=== PATIENT | female | born 1985 | race Caucasian/White ===

== ENCOUNTER 2023-12-29 12:06 | Emergency (ER) | payer OTHER, SELFPAY ==
[2023-12-29 12:08] VITALS: BP 129/79
[2023-12-29 13:24] LABS: % Basophils 0.5 % (0-2); % Eosinophils 1.6 % (0-6); % Immature Granulocytes 0.2 % (0-0.5); % Lymphocytes 28.6 % (20.5-51.1); % Monocytes 10.4 % (1.7-9.3); % Neutrophils 58.7 % (42.2-75.2); Absolute Eosinophils 0.1 10^3/uL (0-0.7); Absolute Lymphocytes 1.3 10^3/uL (1.2-3.4); Absolute Monocytes 0.5 10^3/uL (0.1-0.6); Absolute Neutrophils 2.6 10^3/uL (1.4-6.5); Hematocrit 37.3 % (37.0-47.0); Hemoglobin 12.4 g/dL (12.0-16.0); Mean Corp Hgb Conc. 33.2 g/dL (33.0-37.0); Mean Corpuscular Hgb 27.7 pg (27.0-31.0); Mean Corpuscular Volume 83.3 fL (81.0-99.0); Mean Platelet Volume 9.7 fL (7.4-10.4); Nucleated Red Blood Cells % 0 %; Platelet Count 271 10^3/uL (130-400); Red Blood Cell Count 4.48 10^6/uL (4.20-5.40); Red Cell Dist. Width 13.8 % (11.5-14.5); White Blood Cell Count 4.4 10^3/uL (4.8-10.8)
[2023-12-29 13:42] LABS: ALT (SGPT) 24 U/L (0-35); AST (SGOT) 23 U/L (14-36); Albumin 4.5 g/dl (3.5-5.0); Alkaline Phosphatase 54 U/L (38-126); Blood Urea Nitrogen 18 mg/dl (7-17); Calcium 9.5 mg/dl (8.4-10.2); Carbon Dioxide 28 mmol/L (22-30); Chloride 104 mmol/L (98-107); Glucose 93 mg/dl (70-99); Potassium 5.2 mmol/L (3.5-5.1); Sodium 141 mmol/L (135-145); Total Bilirubin 0.8 mg/dl (0.2-1.3); Total Protein 7.2 g/dl (6.3-8.2); eGFR > 60.00
[2023-12-29 13:45] LABS: Troponin I < 0.012 ng/ml
[2023-12-29 14:06] VITALS: BP 118/79
--- NOTE | 2023-12-29 14:16 | ED.GENMED ---
History of Present Illness
General
Chief Complaint: Chest Pain
Source: patient and spouse
Exam Limitations: none
Time Seen by Provider: 12/29/23 14:11
Nursing documentation reviewed up to this point in time: agreed with
History of Present Illness
History of Present Illness:
38-year-old female presents emergency department complaining of chest pain, jaw pain and fatigue since yesterday. Her chest tightness has dissipated, though she feels some in the back. Her jaw pain and headache have also dissipated.
Past History
Past History
ED Past Medical History: GERD
ED Past Surgical History: Tonsilectomy
Social History
Tobacco: Non-smoker
Alcohol: None
Personal:
Review of Systems
Review of Systems
Allergies reviewed?: Yes
All Other Systems: Not applicable
Constitutional: Reports no symptoms
EENT: Reports no symptoms
Respiratory: Reports trouble breathing
Cardiac: Reports chest pain
ABD/GI: Reports no symptoms
: Reports no symptoms
Musculoskeletal: Reports no symptoms
Skin: Reports no symptoms
Neurological: Reports no symptoms
Endocrine: Reports no symptoms
Hematologic/Lymphatic: Reports no symptoms
Psychiatric: Reports no symptoms
Phy Exam
Physical Exam
Physical Exam:
Physical Exam
General: no apparent distress, not acutely ill
Neck: supple. no meningeal signs. normal posterior pharynx
Heart: s1/s2 regular rate and rhythm, no murmur. equal radial
pulses.
HEENT: Pupils equal round reactive to light, EOMI
Lungs: no acute respiratory distress. clear bilaterally
Abdomen: normal bowel sounds. not tender. no CVAT
Neuro: alert and oriented. no focal neurological deficits cranial nerves II through XII intact
Skin: no rash
Psychiatric: well kept. interactive and cooperative
Extremities: no edema. no calf tenderness. negative homans. good distal pulses
Scores
Heart Score for Chest Pain Patients
STEMI patient?: No
History: Slightly or Non-Suspicious
ECG: Normal
Age: </= 45 years
Risk Factors: No Risk Factors
Troponin: </= Normal Limit
Heart Score for Chest Pain Patients: 0
Heart Score Risk: 2.5% MACE over next 6 weeks
Course
Orders/Labs/Results
Orders:
Orders
12/29/23 12:06
Electrocardiogram (*1) Urgent
Reason for Study: Chest Pain
12/29/23 12:07
EKG- Treatment ONCE
12/29/23 13:14
CR Chest - 2 Views Urgent
Comment:
Reason For Exam: chest pain
12/29/23 13:16
Complete Blood Count/With Diff Urgent
Comprehensive Metabolic Panel Urgent
Troponin I Urgent
12/29/23 14:44
COVID-19 Antigen Urgent
Source: Nasal Swab
12/29/23 15:17
DDimer [D-Dimer] Urgent
Abnormal Lab Results
12/29/23
13:16
WBC 4.4 L 10^3/uL
(4.8-10.8)
Monocytes % 10.4 H %
(1.7-9.3)
Potassium 5.2 H mmol/L
(3.5-5.1)
BUN 18 H mg/dl
(7-17)
12/29/23 13:16
12/29/23 13:16
Vital Signs
Initial and Last Documented VS:
Initial Vital Signs
Temp Pulse Resp BP Pulse Ox
97.9 F 89 20 129/79 99
12/29/23 12:08 12/29/23 12:08 12/29/23 12:08 12/29/23 12:08 12/29/23 12:08
Last Documented Vital Signs
Temp Pulse Resp BP Pulse Ox
97.9 F 69 19 118/79 98
12/29/23 12:08 12/29/23 14:15 12/29/23 14:15 12/29/23 14:06 12/29/23 14:51
MDM/Problems Addressed
Differential Diagnosis Includes:
Pulmonary embolism, ACS, reflux
MDM/Problems Addressed:
38-year-old female with chest pain, unclear etiology. D-dimer, troponin, chest x-ray and COVID normal. Patient stable for discharge. Do not suspect ACS or PE. Follow-up with primary care. Return precautions given.
*Radiology
Radiology exam reviewed: radiology read reviewed (Chest x-ray no acute findings)
*Pulse Oximetry
Patient hypoxic: no
*EKG
Interpreted by ED Provider?: Yes
EKG Intrepretation Date: 12/29/23
EKG Intrepretation Time: 12:18
Interpretation: normal
Comparison EKG: no changes
Heart Rate: 79
Rate: normal
Rhythm: sinus
Archer: normal axis
Interval: normal interval
QRS Pattern: normal QRS
Ischemia: no ischemia
*Order Control Clerk Blood Bank Interpretation
Rate: normal
Interpretation: normal
Heart Rate: 70
Rhythm: sinus
*Critical Care Note
Total Time (30-74mins, 75-104mins- exclusive of procedures): Not Applicable
Patient Management
Social determinants of health affecting care: Living situation
Escalation/DeEscalation of care consider admission/obs:
Admit not indicated
ED Attending Note
-
Portions of this chart may have been created with voice recognition software.� Occasional wrong word or��sound alike� substitutions may have occurred due to the inherent limitations of voice recognition software.
Discharge Plan
Departure
Patient Disposition: Home (Routine Discharge)
Date of Disposition: 12/29/23
Time of Disposition: 16:00
Patient with high blood pressure during this ER visit?: No
Condition: Good
Discharge Problem:
Chest pain
Instructions: Chest Pain PCP Follow Up
Referrals:
Ludwin Maxwell, DO [Family Provider] -
Interventions
Interventions:
*Risk Screen - Suicide Last Done: 12/29/23 14:51
*General Assessment Last Done: 12/29/23 12:08
*Neglect/Abuse Screening Last Done: 12/29/23 14:51
ED- Fall Risk Assessment Last Done: 12/29/23 14:51
*ED COVID-19 Vaccine History Last Done: 12/29/23 14:51
ED- Cardiac Assessment Last Done: 12/29/23 14:51
Discharge Date and Time
Print Language: FRENCH
[2023-12-29 14:51] VITALS: BMI 29.8
[2023-12-29 15:00] VITALS: BP 118/91
[2023-12-29 15:05] LABS: COVID-19 Antigen Negative (Negative)
[2023-12-29 15:40] LABS: D-Dimer < 0.27 ug/mlFEU (0.00-0.50)
[2023-12-29 16:00] VITALS: BP 93/63
== END 2023-12-29 16:41 | disposition home or self-care (01) ==
LOC: EMR 12:06
PROVIDERS: Emergency Medicine; EMERGENCY PHYSICIAN Emergency Medicine; FAMILY PHYSICIAN Family Medicine
DX: R07.89 Other chest pain (principal); K21.9 Gastro-esophageal reflux disease without esophagitis
CPT/HCPCS: 99285; 71046; 80053; 84484; 85025; 85379; 87811; 93005

== ENCOUNTER 2024-10-19 09:50 | Emergency (ER) | payer OTHER, SELFPAY ==
[2024-10-19 09:51] VITALS: BP 134/89
[2024-10-19] MEDS: DECADRON 10 MG IV (11:10)
[2024-10-19] MEDS: PEPCID 20 MG IV (11:10)
[2024-10-19] MEDS: TORADOL 15 MG IV (11:10)
[2024-10-19 11:12] LABS: Hematocrit 38.2 % (37.0-47.0); Hemoglobin 13.1 g/dL (12.0-16.0); Mean Corp Hgb Conc. 34.3 g/dL (33.0-37.0); Mean Corpuscular Volume 82.5 fL (81.0-99.0); Nucleated Red Blood Cells % 0 %; Platelet Count 205 10^3/uL (130-400); Red Cell Dist. Width 13.3 % (11.5-14.5)
[2024-10-19 11:25] VITALS: BP 116/84
--- NOTE | 2024-10-19 11:27 | EDRN ---
Lab called and SST hemolyzed. Pt has hand IV as difficulty to find a vein. CT called and said cannot inject into hand. IV team TT'd and will be down. Will attempt to redraw SST tube .
[2024-10-19 11:38] VITALS: BMI 31.2
[2024-10-19 11:53] LABS: COVID-19 Antigen Negative (Negative)
--- NOTE | 2024-10-19 12:26 | EDRN ---
IV team was able to get a forearm IV but no redraw of SST possible.
[2024-10-19 12:52] VITALS: BP 104/68
[2024-10-19 13:11] LABS: HCG, Serum Qualitative Screen Negative
[2024-10-19 13:21] LABS: ALT (SGPT) 14 U/L (0-35); AST (SGOT) 19 U/L (14-36); Albumin 4.0 g/dl (3.5-5.0); Alkaline Phosphatase 48 U/L (38-126); Blood Urea Nitrogen 11 mg/dl (7-17); Calcium 8.8 mg/dl (8.4-10.2); Carbon Dioxide 26 mmol/L (22-30); Chloride 108 mmol/L (98-107); Estimated Creatinine Clearance 125 ml/min; Glucose 78 mg/dl (70-99); Potassium 4.5 mmol/L (3.5-5.1); Sodium 137 mmol/L (135-145); Total Protein 6.5 g/dl (6.3-8.2); eGFR > 60.00
[2024-10-19 14:54] VITALS: BP 123/74
--- NOTE | 2024-10-19 15:07 | EDRN ---
Sonia GONZALEZ in room w/pt.
--- NOTE | 2024-10-19 15:20 | ED.GENMED ---
History of Present Illness
General
Chief Complaint: Allergic Reaction
Time Seen by Provider: 10/19/24 09:59
History of Present Illness
History of Present Illness:
asee MDM
Past History
Past History
ED Past Medical History: GERD
ED Past Surgical History: Tonsilectomy
Social History
Tobacco: Non-smoker
Alcohol: None
Personal:
Phy Exam
Physical Exam
Physical Exam:
GENERAL: Alert , in no apparent distress, well appearing
drank sips of clears without struggling; no regurgitation or multiple swallowing
EYE: pupils equal and reactive
NECK: Supple, no thyromegaly, no OWEN
ENT: b/l TM s clear, pharynx nonertyehatmous, no swelling; no uvular deviation; no tonsils present
,mild hoarse voice;
secretions otherwise normal
CARDIAC: Regular rate and rhythm, no edema
LUNGS: Clear breath sounds bilaterally, no acute respiratory distress, no wheezes/rales/rhonchi, occ cough
ABDOMEN: Soft, without focal tenderness, no r/g, no cvat, normal bowel sounds
NEUROLOGICAL: Alert and oriented, no focal neuro deficits
SKIN: Warm and dry, skin intact.
MUSCULOSKELETAL: No edema, well perfused.
PSYCH: Normal and appropriate interaction.
Course
Orders/Labs/Results
Orders:
Orders
10/19/24 10:15
CT Neck With Iv Contrast Urgent
Comment:
Reason For Exam: trouble swallowing, hoarse voice; h/o vocal cord s
Dexamethasone Sod Phosphate [Decadron] 10 mg IV NOW STA
Famotidine [Pepcid] 20 mg IV NOW STA
Ketorolac [Toradol] 15 mg IV NOW STA
Test Result ONCE
10/19/24 10:59
COVID-19 Antigen Urgent
Source: Nasal Swab
10/19/24 11:07
Complete Blood Count/With Diff Urgent
10/19/24 12:51
Comprehensive Metabolic Panel Urgent
HCG, Serum Qualitative Screen Urgent
10/19/24 15:19
Add On- LAB Urgent
Tests Added?: tsh reflex t4
Abnormal Lab Results
10/19/24
12:51
Chloride 108 H mmol/L
(98-107)
10/19/24 11:07
10/19/24 12:51
Vital Signs
Initial and Last Documented VS:
Initial Vital Signs
Temp Pulse Resp BP Pulse Ox
37.0 C 83 16 134/89 99
10/19/24 09:51 10/19/24 09:51 10/19/24 09:51 10/19/24 09:51 10/19/24 09:51
Last Documented Vital Signs
Temp Pulse Resp BP Pulse Ox
37.0 C 88 16 123/74 96
10/19/24 09:51 10/19/24 14:54 10/19/24 14:54 10/19/24 14:54 10/19/24 14:54
MDM/Problems Addressed
Differential Diagnosis Includes:
see MDM
MDM/Problems Addressed:
Note:
CHIEF COMPLAINT(S)
Difficulty swallowing and sore throat.
HISTORY OF PRESENT ILLNESS
The patient is a 38-year-old female who woke up with a sensation of heaviness in her throat and difficulty swallowing. She describes the sensation as feeling like 'cotton balls shoved down my throat.' The difficulty swallowing is noted even with
small sips of water, requiring multiple attempts to swallow. She reports the onset of these symptoms as starting with a sore throat yesterday while traveling back from vacation. pt started zepbound in august and just increased the dose yesterday.
she has been feeling fatigued ever since starting this medication along with a few other common side effects, skin sensitivty, etc and feels that this throat thing today is related to her zepbound. she has not had trouble breathing, wheezing, rash.
she doesn't feel like her throat is closing
she chronically has a hoarse voice, had vocal cord surgery a ew years ago due to polyps; she doesn't feel like this is any worse today
PAST MEDICAL AND SURGICAL HISTORY
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
CHRONIC MEDICAL CONDITIONS SIGNIFICANTLY AFFECTING CARE
The patient is on GLP-1 medication and noticed adverse effects, which might be contributing to her current symptoms.
SOCIAL HISTORY
The patient mentioned that her spouse applies lotion to her feet for dry skin, indicating a supportive home environment.
REVIEW OF SYSTEMS
- Ear, Nose, and Throat: Sore throat described as feeling like cotton balls in the throat, difficulty swallowing, sensation of heaviness in the throat, naturally hoarse voice but worse than usual; no fever or chills, but temperature sensitivity
noted.
- Skin: Skin sensitivity around the injection site and dry skin.
- General: Significant fatigue experienced.
- Gastrointestinal: Nausea during travel; no regurgitation.
- Respiratory: Heaviness in the chest.
- Allergy/Immunology: No acute respiratory distress or signs of anaphylaxis.
PHYSICAL EXAM
- Ear, Nose, and Throat: The examination reveals that the uvula is midline, and there is no tonsillar swelling. The pharynx is wide open, with no visible narrowing; nursing notes reviewed and vital signs reviewed.
PROBLEM LIST
- Acute: Sore throat with difficulty swallowing, skin sensitivity at injection site, fatigue, possible upper respiratory tract infection.
- Chronic: Complications or adverse effects from GLP-1 medication.
PLAN
1. Administer a dose of intravenous steroids to address potential inflammation in the throat.
2. Obtain a neck scan to evaluate tissues and look for abscesses or abnormalities, also to visualize the vocal cords.
3. Perform basic blood work.
4. Conduct tests for influenza and COVID-19 due to generalized aches and sore throat.
5. Monitor and evaluate the reaction to treatment, and consider follow-up as necessary.
DIFFERENTIAL DIAGNOSIS
The Differential Diagnosis includes, in no particular order and is not limited to:
1. Viral pharyngitis
2. Bacterial pharyngitis
3. Side effect from GLP-1 medication
4. Allergic reaction or intolerance
5. Upper respiratory tract infection
6. Stress-induced dysphonia
7. Esophageal dysmotility
8. Gastroesophageal reflux disease
9. Lymphadenopathy-related dysphagia
10. Thyroid enlargement affecting swallowing
CARE-UPDATE
10/19/24 - 15:08
The patients throat and neck exam revealed no swelling or signs of infection, and there is no narrowing of the airway. All blood work appears normal. The medication provided some relief, though the patient reports tiredness, loss of appetite, and
speculation about the effects of the current medication, discussing switching to alternatives. Consideration is given to potential viral illness or vocal cord involvement. A thyroid test will be added to assess other causes of fatigue. The patient
noted experiencing some skin concerns possibly related to recent vacation conditions, but these are not definitively linked to any change in products or environment. Discharge planned with instructions to monitor symptoms and follow up, with a work
note provided for two days.
*Pulse Oximetry
SaO2: 96
Oxygen Mode of Delivery: Room air
Patient hypoxic: no (96)
*Critical Care Note
Total Time (30-74mins, 75-104mins- exclusive of procedures): Not Applicable
ED Attending Note
-
Portions of this chart may have been created with voice recognition software.� Occasional wrong word or��sound alike� substitutions may have occurred due to the inherent limitations of voice recognition software.
Discharge Plan
Departure
Patient Disposition: Home (Routine Discharge)
Date of Disposition: 10/19/24
Time of Disposition: 15:10
Patient with high blood pressure during this ER visit?: No
Condition: Fair
Covid-19: Not Applicable
Discharge Problem:
Dysphagia
Instructions: Dysphagia in adults - Discharge instructions
Referrals:
Fransico Edwards IV, MD [Family Provider, Family Practice] - Follow up in 2-3 days
Activity Restrictions/Additional Instructions:
YOUR WORK UP TODAY WAS NEGATIVE FOR ANY EMERGENT CAUSES FOR YOUR SYMPTOMS
IT IS POSSIBLE YOU HAVE A VIRAL INFECTION CAUSING SORE THROAT/INFLAMMATION, OR THIS COULD BE SIDE EFFECT FROM YOUR ZEPBOUND.
TAKE TYLENOL/MOTRIN FOR PAIN NEEDED
STAY HYDRATED
CONSIDER FOLLOW UP WITH EAR NOSE AND THROAT FOR PERSISTENTS YMPTOMS.
RETURN FOR ANY CONCERNS: INABILITY TO SWALLOW LIQUIDS, ETC
Interventions
Interventions:
*Risk Screen - Suicide Last Done: 10/19/24 09:51
*General Assessment Last Done: 10/19/24 11:37
*Neglect/Abuse Screening Last Done: 10/19/24 09:51
*ED- Fall Risk Assessment Last Done: 10/19/24 11:35
*ED COVID-19 Vaccine History Last Done: 10/19/24 11:35
ED- Cardiac Assessment Last Done: 10/19/24 11:35
ED- Pulmonary Assessment Last Done: 10/19/24 11:35
ED-Skin Assessment Last Done: 10/19/24 11:37
Discharge Date and Time
Print Language: SUDANESE
== END 2024-10-19 15:33 | disposition home or self-care (01) ==
LOC: EMR 09:50
PROVIDERS: Physician Assistant; EMERGENCY PHYSICIAN Student in an Organized Health Care Education/Training Program; FAMILY PHYSICIAN Family Medicine
DX: R13.10 Dysphagia, unspecified (principal); R09.89 Other specified symptoms and signs involving the circulatory and respiratory systems; K21.9 Gastro-esophageal reflux disease without esophagitis; Z79.899 Other long term (current) drug therapy
CPT/HCPCS: 96374; 96375; 99284; 70491; 80053; 84443; 84703; 85025; 87811; Q9967